=== PATIENT | female | born 1955 | race Caucasian/White ===

== ENCOUNTER 2016-11-06 18:18 | Emergency (ER) | payer OTHER ==
[~2016-11-06] VITALS: Ht 160 cm; Wt 74.0 kg
[~2016-11-06 18:18] MED LIST: CHLO.12%30 SWISH-SPIT; CLIN150 PO; GLIP2.5T6 PO; IBUP800T23 PO; LISI-363 PO; METF850T PO; MMW SWISH-SPIT
[2016-11-06 18:42] VITALS: BP 141/67; PULSE 92; RESP 16; TEMP 98.2; O2SAT 95
[2016-11-06] MEDS ORDERED: LOSA25TA PO (19:45)
[2016-11-06] MEDS ORDERED: METF1000 PO (19:45)
--- NOTE | 2016-11-06 20:34 | PD ---
HPI . Trip and fall Chief Complaint: Fall Time Seen by Provider: 20:18 Travel History International Travel<30 days: No Contact w/Intl Traveler<30days: No Traveled to known affect area: No History of Present Illness HPI Patient presents for evaluation of injury sustained in a fall. She tripped and fell getting a little bus. She states that she landed on her left side. She is complaining of pain in the left scalp, neck, low back, left hip, left thumb. She denies loss of consciousness. She denies any blurred vision, dizziness or nausea. She rates her back pain 8/10. PFSH Past Medical History Diabetes: Yes Patient Takes Glucophage: Yes Hypertension: Yes Past Surgical History Appendectomy: Yes Social History Alcohol Use: No Tobacco Use: No Substance Use: No Allergies-Medications (Allergen,Severity, Reaction): Coded Allergies: Penicillin (Verified Allergy, Mild, Itching, 11/06/16) Reported Meds & Prescriptions Reported Meds & Active Scripts Active Reported Losartan (Losartan Potassium) 25 Mg Tab 25 Mg PO DAILY Metformin (Metformin HCl) 1,000 Mg Tab 1,000 Mg PO BIDPC With meals Review of Systems Except as stated in HPI: all other systems reviewed are Neg Eyes: No: Blurred Vision HENT: Positive: Neck Pain, No: Headaches Gastrointestinal: No: Nausea, Vomiting Musculoskeletal: Positive: Myalgias, Arthralgias, No: Limited ROM Physical Exam Narrative GENERAL: Awake and alert and in no acute distress. SKIN: Warm and dry. HEAD: Atraumatic. Normocephalic. No external signs of trauma. EYES: Pupils equal and round. Extraocular movements intact. NECK: Trachea midline. CARDIOVASCULAR: Regular rate and rhythm. RESPIRATORY: No accessory muscle use. MUSCULOSKELETAL: No obvious deformities. No edema. She has full range of motion of her back and hip. She has no swelling. There is no bruising. NEUROLOGICAL: Awake and alert. No obvious cranial nerve deficits. Motor grossly within normal limits. Normal speech. PSYCHIATRIC: Appropriate mood and affect; insight and judgment normal. Data Data Last Documented VS Vital Signs Date Time Temp Pulse Resp B/P Pulse Ox O2 Delivery O2 Flow Rate FiO2 11/06/16 18:42 98.2 92 16 141/[address] Brain W/O Iv Contrast(Rout) (11/06/16 20:18) Ct Cerv Spine W/O Contrast (11/06/16 20:18) Finger ([id number]) (11/06/16 20:18) Hip, Uni(Ap&Lat) W Ap Pelvis (11/06/16 20:18) Spine, Lumbar - Ltd (Ap & Lat) (11/06/16 20:18) MDM Medical Decision Making Medical Screen Exam Complete: Yes Emergency Medical Condition: Yes Differential Diagnosis Differential diagnosis includes but is not limited to scalp contusion, concussion, cerebral hemorrhage. Also included are neck strain, C-spine fracture, back strain, back fracture, left hip contusion, left hip fracture, left thumb contusion, left thumb fracture or dislocation. Narrative Course CT and x-rays have been ordered. Last Impressions Lumbar Spine X-Ray 11/06/162017 Signed Impressions: Service Date/Time: Sunday, November 06, 2016 20:40 - CONCLUSION: Normal examination for a patient of this age. Jonathan Dillon MD Hip and Pelvis X-Ray 11/06/162017 Signed Impressions: Service Date/Time: Sunday, November 06, 2016 20:36 - CONCLUSION: 1. No acute findings. 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 Jonathan Dillon MD Head CT 11/06/162017 Signed Impressions: Service Date/Time: Sunday, November 06, 2016 20:49 - CONCLUSION: Normal examination for a patient of this age. Jonathan Dillon MD Finger X-Ray 11/06/162017 Signed Impressions: Service Date/Time: Sunday, November 06, 2016 20:44 - CONCLUSION: Unremarkable examination of the left first finger. Jonathan Dillon MD Cervical Spine CT 11/06/162017 Signed Impressions: Service Date/Time: Sunday, November 06, 2016 20:49 - CONCLUSION: Normal examination for a patient of this age. Jonathan Dillon MD CT head>>Normal examination for a patient of this age. Plain films were all reviewed by me. Diagnosis Primary Impression: Fall Qualified Code: W19.XXXA - Fall, initial encounter Additional Impressions: Scalp contusion Neck strain Qualified Code: S16.1XXA - Neck strain, initial encounter Low back strain Qualified Code: S39.012A - Low back strain, initial encounter Contusion of left hip Qualified Code: S70.02XA - Contusion of left hip, initial encounter Contusion of left thumb Qualified Code: S60.012A - Contusion of left thumb without damage to nail, initial encounter Patient Instructions: Fall Prevention (DC), General Instructions Scripts Ibuprofen 800 Mg Ths569 Mg PO Q8H PRN (Pain/Inflammation) #60 TAB Ref 0 Prov:Carolee Valle MD 11/06/16 Disposition: 01 DISCHARGE HOME Condition: Stable Carolee Valle MD November 06, 2016 20:34
--- NOTE | 2016-11-06 21:37 | RADRPT ---
EXAM DATE/TIME: 11/06/2016 20:49 [facility] COMPARISON: No previous studies available for comparison. INDICATIONS : Patient tripped and fell today. Neck pain. RADIATION DOSE: 21.45 CTDIvol (mGy) MEDICAL HISTORY : Hypertension. Diabetes. SURGICAL HISTORY : Appendectomy. ENCOUNTER: Initial ACUITY: 1 day PAIN SCALE: 6/10 LOCATION: neck TECHNIQUE: Volumetric scanning of the cervical spine was performed. Multiplanar reconstructions in the sagittal, coronal and oblique axial planes were performed. Using automated exposure control and adjustment o f the mA and/or kV according to patient size, radiation dose was kept as low as reasonably achievable to obtain optimal diagnostic quality images. FINDINGS: VERTEBRAE: Normal vertebral body height. ALIGNMENT: No evidence of subluxation. C2-C3: The bony spinal canal is normal in size. No evidence of disc bulge or herniation. The neural forami na are bilaterally patent. C3-C4: The bony spinal canal is normal in size. No evidence of disc bulge or herniation. The neural forami na are bilaterally patent. C4-C5: The bony spinal canal is normal in size. No evidence of disc bulge or herniation. The neural forami na are bilaterally patent. C5-C6: The bony spinal canal is normal in size. No evidence of disc bulge or herniation. The neural forami na are bilaterally patent. C6-C7: The bony spinal canal is normal in size. No evidence of disc bulge or herniation. The neural forami na are bilaterally patent. C7-T1: The bony spinal canal is normal in size. No evidence of disc bulge or herniation. The neural forami na are bilaterally patent. CONCLUSION: Normal examination for a patient of this age. Jonathan Dillon MD on November 06, 2016 at 21:06 Board Certified Radiologist. This report was verified electronically.
--- NOTE | 2016-11-06 21:38 | RADRPT ---
EXAM DATE/TIME: 11/06/2016 20:36 [facility] COMPARISON: No previous studies available for comparison. INDICATIONS : Left hip pain after falling on the ramp at [facility]. MEDICAL HISTORY : None. SURGICAL HISTORY : None. ENCOUNTER: Initial ACUITY: 1 day PAIN SCORE: 6/10 LOCATION: Left hip. FINDINGS: Examination of the left hip was performed with AP Pelvis. The primary and secondary trabecular patte rn of the femoral neck is intact. The hip joint is of normal width without significant sclerosis or bony hypertrophy. The acetabulum is grossly intact. CONCLUSION: 1. No acute findings. 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 Jonathan Dillon MD on November 06, 2016 at 21:16 Board Certified Radiologist. This report was verified electronically.
--- NOTE | 2016-11-06 21:59 | RADRPT ---
EXAM DATE/TIME: 11/06/2016 20:40 [facility] COMPARISON: No previous studies available for comparison. INDICATIONS : Lower back pain after falling on ramp at [facility]. MEDICAL HISTORY : None. SURGICAL HISTORY : None. ENCOUNTER: Initial ACUITY: 1 day PAIN SCORE: 5/10 LOCATION: lumbar. FINDINGS: Two view examination was performed. There are five non-rib bearing vertebral bodies. The vertebral bodies are in normal alignment without evidence of subluxation or scoliosis. The disc spaces are irina ntained. The pedicles are intact. Bony mineralization is normal. No fracture is identified. CONCLUSION: Normal examination for a patient of this age. Jonathan Dillon MD on November 06, 2016 at 21:56 Board Certified Radiologist. This report was verified electronically.
--- NOTE | 2016-11-06 22:02 | RADRPT ---
EXAM DATE/TIME: 11/06/2016 20:44 [facility] COMPARISON: No previous studies available for comparison. INDICATIONS : Left hand, thumb pain after falling on to ramp at the [place]. MEDICAL HISTORY : None. SURGICAL HISTORY : None. ENCOUNTER: Initial ACUITY: 1 day PAIN SCORE: 4/10 LOCATION: Left hand, thumb. FINDINGS: Examination of the first digit of the left hand demonstrates no evidence of fracture or dislocation. No radiopaque foreign bodies are seen. The soft tissues are intact. CONCLUSION: Unremarkable examination of the left first finger. Jonathan Dillon MD on November 06, 2016 at 21:58 Board Certified Radiologist. This report was verified electronically.
--- NOTE | 2016-11-06 22:56 | RADRPT ---
EXAM DATE/TIME: 11/06/2016 20:49 [facility] COMPARISON: No previous studies available for comparison. INDICATIONS : Patient tripped and fell today. RADIATION DOSE: 36.96 CTDIvol (mGy) MEDICAL HISTORY : Hypertension. Diabetes. SURGICAL HISTORY : Appendectomy. ENCOUNTER: Initial ACUITY: 1 day PAIN SCALE: 6/10 LOCATION: Right cranial TECHNIQUE: Multiple contiguous axial images were obtained of the head. Using automated exposure control and adj ustment of the mA and/or kV according to patient size, radiation dose was kept as low as reasonably a chievable to obtain optimal diagnostic quality images. FINDINGS: CEREBRUM: The ventricles are normal for age. No evidence of midline shift, mass lesion, hemorrhage or acute in farction. No extra-axial fluid collections are seen. POSTERIOR FOSSA: The cerebellum and brainstem are intact. The 4th ventricle is midline. The cerebellopontine angle i s unremarkable. EXTRACRANIAL: The visualized portion of the orbits is intact. SKULL: The calvaria is intact. No evidence of skull fracture. CONCLUSION: Normal examination for a patient of this age. Jonathan Dillon MD on November 06, 2016 at 22:53 Board Certified Radiologist. This report was verified electronically.
[2016-11-06] MEDS ORDERED: IBUP800T23 PO (23:05)
== END 2016-11-06 23:20 | disposition home or self-care (01) ==
LOC: NEPD 18:18
DX: S16.1XXA Strain of muscle, fascia and tendon at neck level, initial encounter (principal); S39.012A Strain of muscle, fascia and tendon of lower back, initial encounter; S70.02XA Contusion of left hip, initial encounter; S60.012A Contusion of left thumb without damage to nail, initial encounter; E11.9 Type 2 diabetes mellitus without complications; I10 Essential (primary) hypertension; W18.43XA Slipping, tripping and stumbling without falling due to stepping from one level to another, initial encounter; Y93.89 Activity, other specified; Y92.811 Bus as the place of occurrence of the external cause; Y99.8 Other external cause status
CPT/HCPCS: 70450; 72100; 72125; 73140; 73502